=== PATIENT | male | born 1995 | race Caucasian/White ===

== ENCOUNTER 2017-06-02 13:37 | Emergency (ER) | payer SELFPAY, OTHER ==
[2017-06-02] MEDS ORDERED: GASTROGRAFIN SOLUTION 30ML (Q9963) As Ordered (15:13)
[2017-06-02] MEDS: KETOROLAC 30 MG/ML VIAL (J1885) IV (15:25)
[2017-06-02] MEDS: ONDANSETRON 4MG/2ML VIAL (J2405) IV (15:25)
[2017-06-02] MEDS: NS 1,000 ML IV (15:25)
[2017-06-02] MEDS: GASTROGRAFIN SOLUTION 30ML (Q9963) PO ×2 (15:34→16:24)
[2017-06-02 16:01] LABS: BASO % 0.2 % (0.0-1.0); HEMATOCRIT 44.4 % (42.0-52.0); HEMOGLOBIN 15.1 g/dl (14.0-18.0); IMMATURE GRANULOCYTE % 0.6 % (0-3.0); LYMPH # 0.9 10^3/uL (1.5-6.5); LYMPH % 7.5 % (24.0-44.0); MEAN CORPUSCULAR HEMOGLOBIN 30.8 pg (27.0-33.0); MEAN CORPUSCULAR VOLUME 90.6 fl (80.0-96.0); MONO # 0.6 10^3/uL (0.0-0.8); MONO % 4.9 % (0.0-5.0); NEUTROPHILS # 10.9 10^3/uL (1.8-7.7); NEUTROPHILS % 86.8 % (36.0-66.0); PLATELET COUNT, AUTOMATED 268 10^3/uL (150-450); RED CELL DISTRIBUTION WIDTH 13.1 % (11.5-14.5); WHITE BLOOD COUNT 12.5 10^3/uL (4.0-10.0)
[2017-06-02 16:12] LABS: ANION GAP 14 MEQ/L (8-16); BLOOD UREA NITROGEN 10 MG/DL (7-18); C REACTIVE PROTEIN QUANTITATIV < 0.30 MG/DL (0.00-0.30); CALCIUM LEVEL 9.5 MG/DL (8.5-10.1); CARBON DIOXIDE LEVEL 24 MEQ/L (21-32); CHLORIDE LEVEL 101 MEQ/L (98-107); CREATININE FOR GFR 1.01 MG/DL (0.70-1.30); GLUCOSE, FASTING 137 MG/DL (70-100); LIPASE 49 U/L (73-393); POTASSIUM SERUM 3.4 MEQ/L (3.5-5.1); SODIUM LEVEL 139 MEQ/L (136-145)
[2017-06-02] MEDS ORDERED: ISOVUE-370 76% 100ML VIAL (Q9967) As Ordered (16:54)
[2017-06-02 17:24] LABS: KETONE, URINE AUTO RFX 1+ mg/dL (NEGATIVE); LEUKOCYTE ESTERASE UR AUTO RFX NEGATIVE (NEGATIVE); MUCUS, URINE RFX SMALL (NEGATIVE); NITRITE, URINE AUTO RFX NEGATIVE (NEGATIVE); RBC, URINE AUTO RFX 2 /HPF (0-3); SQUAM EPITHELIAL CELL UR AURFX 0 /HPF (0-6); WBC, URINE AUTO RFX 1 /HPF (0-3)
== END 2017-06-02 17:51 | disposition home or self-care (01) ==
LOC: M ED 13:37
DX: R10.30 Lower abdominal pain, unspecified (principal); R11.2 Nausea with vomiting, unspecified; Z87.891 Personal history of nicotine dependence
CPT/HCPCS: J2405